=== PATIENT | male | born 1945 | race Caucasian/White ===

== ENCOUNTER 2022-03-13 15:45 | Outpatient (CLI) | payer MEDICARE, SELFPAY ==
[2022-03-13 10:40] LABS: Albumin* 4.3 g/dL (3.3-5.0); Chloride* 108 mmol/L (96-114)
[2022-03-13 10:41] LABS: Potassium* 4.3 mmol/L (3.6-5.1); Sodium* 140 mmol/L (135-149)
[2022-03-13 10:43] LABS: Aspartate Amino Transferase* 27 U/L (12-35); Bilirubin Total* 0.5 mg/dL (0.1-1.5); Blood Urea Nitrogen* 17 mg/dL (7-30); Carbon Dioxide* 25 mmol/L (20-32); Cholesterol* 116 mg/dL (90-199); Creatinine* 0.9 mg/dL (0.5-1.5); Estimated Glomerular Filt Rate 90 ml/min; Glucose* 110 mg/dL (60-115); Total Protein* 7.2 g/dL (6.0-8.3)
[2022-03-13 10:44] LABS: Alanine Aminotransferase* 27 U/L (4-50); Alkaline Phosphatase* 59 U/L (40-150); Calcium* 8.9 mg/dL (8.4-10.6); HDL Cholesterol* 44 mg/dL (>=40); LDL Cholesterol Calculated 51 mg/dL (<100); Triglycerides* 105 mg/dL (40-149)
== END 2022-03-13 15:46 | disposition home or self-care (01) ==
PROVIDERS: PCP Family Medicine; Visit Provider Family Medicine
DX: E78.5 Hyperlipidemia, unspecified (principal); Z12.5 Encounter for screening for malignant neoplasm of prostate
CPT/HCPCS: 80053; 80061; 84153

== ENCOUNTER 2022-04-02 06:59 | Day surgery (SDC) | payer MEDICARE, SELFPAY ==
[2022-04-02] MEDS: LIDOCAINE 0.5%-EPI 1:200,000 50 ML VIAL INJECTION (07:00)
[2022-04-02] MEDS: BUPIVACAINE 0.5% 30 ML INJECTION (07:05)
[2022-04-02 07:22] VITALS: BP 136/88; PULSE 68; RESP 16; TEMP 37.1; O2SAT 94; BMI 34.8
[2022-04-02 07:42] VITALS: BP 152/67; PULSE 59; RESP 16; O2SAT 96
[2022-04-02 07:47] VITALS: BP 145/62; PULSE 59; RESP 16; O2SAT 95
[2022-04-02 07:54] VITALS: BP 132/65; PULSE 60; RESP 12; O2SAT 94
--- NOTE | 2022-04-02 07:54 | PM.ORPRC ---
Procedure Note Date of procedure: 04/02/22 Procedure: PREOPERATIVE DIAGNOSIS: 1. Right long finger flexor tenosynovitis - trigger finger POSTOPERATIVE DIAGNOSIS: 1. Right long finger flexor tenosynovitis - trigger finger PROCEDURE: 1. Right long finger flexor tendon sheath open release (A1 emi) SURGEON: Mychal Elkins MD. CALL CENTER SPECIALIST: Brayan Recinos PA-C ANESTHESIA: Local anesthetic 4ml via 50:50 mixture of 0.5 Lidocaine with epi and 0.5% marcaine plain EBL: 2mL IMPLANTS: None TOURNIQUET: None COMPLICATIONS: None evident INDICATIONS: The patient is a pleasant 76-year-old male who has experienced right long finger catching/triggering for number of months. It has progressively gotten worse. Given the failure of nonoperative management, and how this affects daily life, surgery was recommended. DESCRIPTION OF PROCEDURE: Following a thorough discussion of risks, benefits, and alternatives consent was obtained and the operative digit(s) was marked. The patient was brought to the operating room and placed supine on the operating table. Local anesthesia induction was undertaken in preop holding. No antibiotics were administered as this was planned to be a local case only. Proper time-out was performed identifying proper patient, site, and procedure. The operative extremity was prepped and draped in the appropriate sterile fashion using ChloraPrep. A incision was made on the palmar surface of the hand overlying the MCP joint region of the appropriate digit(s) respecting the palmar creases being cautious not to cross these perpendicularly. Sharp incision through the skin, and blunt dissection through subcutaneous tissue allowing protection of crossing neurologic structures. The A1 emi was visualized directly. It was incised sharply with a 15 blade. It was released completely from its distal to proximal extent under direct visualization. The tendon was inspected and found to be mildly striated consistent with some friction. Otherwise, it was intact. The tendon was removed out of the wound, and further inspected. The patient was asked to manually flex and extend the digits and showed no further catching. The catching, which was visualized initially, was no longer evident with reproduction of a manual fist and relaxation. Closure was performed with 4-O nylon in interrupted fashion. Soft dressings were applied, and the patient was transferred to the recovery room in stable condition. PLAN: 1. Encourage elevation of the operative extremity. 2. Range of motion of the fingers and hand/wrist as tolerated. 3. Ibuprofen/acetaminophen and/or Percocet as needed for pain control. 4. Follow up with PA visit in 12-16 days for wound check and suture removal.
[2022-04-02] MEDS: NEOMYCIN/BACITRACIN/POLYMYXIN B 1 APPLIC TOPICAL (07:57)
[2022-04-02 08:00] VITALS: BP 134/71; PULSE 60; RESP 12; O2SAT 94
[2022-04-02 08:20] VITALS: BP 138/65; PULSE 86; RESP 16; TEMP 36.6; O2SAT 94
== END 2022-04-02 08:24 | disposition home or self-care (01) ==
PROVIDERS: PCP Family Medicine; Visit Provider Orthopaedic Surgery Sports Medicine
PROC: (CPT 26055; principal; 2022-04-02 07:30)
DX: M65.331 Trigger finger, right middle finger (principal); M65.841 Other synovitis and tenosynovitis, right hand
CPT/HCPCS: 26055; J3490

== ENCOUNTER 2022-04-24 13:24 | Outpatient (CLI) | payer MEDICARE, SELFPAY ==
[2022-04-24 17:56] LABS: Ferritin* 19.5 ng/mL (17.9-464.0)
== END 2022-04-24 13:25 | disposition home or self-care (01) ==
PROVIDERS: PCP Family Medicine; Visit Provider Family Medicine
DX: K92.1 Melena (principal); R10.9 Unspecified abdominal pain
CPT/HCPCS: 82728

== ENCOUNTER 2022-05-01 07:10 | Outpatient (CLI) | payer MEDICARE, SELFPAY | END 2022-05-01 07:11 | disposition home or self-care (01) | LOC: OP CLINIC 07:12 | PROVIDERS: PCP Family Medicine; Visit Provider Surgery | DX: R19.8 Other specified symptoms and signs involving the digestive system and abdomen (principal); K44.9 Diaphragmatic hernia without obstruction or gangrene; K31.89 Other diseases of stomach and duodenum; K22.89 Other specified disease of esophagus | CPT/HCPCS: 43239; 88305; J1200; J2250; J3010 ==

== ENCOUNTER 2023-03-12 08:03 | Outpatient (CLI) | payer MEDICARE, SELFPAY | END 2023-03-12 08:04 | disposition home or self-care (01) | LOC: NFLDREF 15:30 | PROVIDERS: PCP Family Medicine; Referring Provider Family Medicine; Visit Provider Family Medicine | DX: I25.10 Atherosclerotic heart disease of native coronary artery without angina pectoris (principal); Z12.5 Encounter for screening for malignant neoplasm of prostate | CPT/HCPCS: 80053; 80061; 84153 ==

== ENCOUNTER 2024-03-14 07:35 | Outpatient (CLI) | payer MEDICARE, SELFPAY | END 2024-03-14 07:36 | disposition home or self-care (01) | LOC: NFLDREF 03-15 05:19 | PROVIDERS: PCP Family Medicine; Referring Provider Family Medicine; Visit Provider Family Medicine | DX: I25.10 Atherosclerotic heart disease of native coronary artery without angina pectoris (principal); N40.0 Benign prostatic hyperplasia without lower urinary tract symptoms; Z12.5 Encounter for screening for malignant neoplasm of prostate; Z13.6 Encounter for screening for cardiovascular disorders | CPT/HCPCS: 80053; 80061; G0103 ==

== ENCOUNTER 2024-05-11 08:48 | Outpatient (CLI) | payer MEDICARE, SELFPAY | END 2024-05-11 08:49 | disposition home or self-care (01) | LOC: NFLDREF 08:48 | PROVIDERS: PCP Family Medicine; Visit Provider Family Medicine | DX: I10 Essential (primary) hypertension (principal) | CPT/HCPCS: 80048 ==